=== PATIENT | female | born 1985 | race Caucasian/White ===

== ENCOUNTER 2020-03-18 14:17 | Inpatient (IN) | payer MEDICAID, SELFPAY ==
[2020-03-18] VITALS (16 sets, daily range): BP systolic 114–134; BP diastolic 63–80; PULSE 68–95; RESP 14–23; TEMP 36.7–37.5; O2SAT 98–100; BMI 30.8
--- NOTE | ~2020-03-18 | US_ITS ---
EXAMINATION: US pelvic complete w TV DATE: 03/18/2020 18:16 INDICATION: Vaginal bleeding, anemia TECHNIQUE: Multiple transabdominal and endovaginal sonographic images of the pelvis were obtained. COMPARISON: CT from today FINDINGS: The uterus measures 13.7 x 10.6 x 11.8 cm. The endometrial complex is difficult to discern. There is an apparent 9.4 x 7.5 cm heterogeneous mass in the endometrial canal. The ovaries are not v isualized however no adnexal abnormality is seen. There is no free fluid in the pelvis. IMPRESSION: 1. Enlarged uterus with heterogeneous mass of the endometrial canal. Given patient's severe anemia, G YN evaluation is recommended. Reviewed, dictated and finalized at location A. IMPRESSION: 1. Enlarged uterus with heterogeneous mass of the endometrial canal. Given anton ent's severe anemia, SEISMOGRAPH RECORDER evaluation is recommended.
--- NOTE | ~2020-03-18 | CT_ITS ---
EXAMINATION: CT abdomen pelvis w con INDICATION: Vaginal bleeding TECHNIQUE: Computed tomographic images of the abdomen and pelvis were obtained after the administrati on of 100 cc of Omnipaque 350 intravenous contrast. The dose-length product (DLP) was 540.53 mGy-cm. Automated exposure control and iterative reconstruction technique were employed. COMPARISON: None available FINDINGS: Minimal dependent atelectasis is present in the lung bases. The heart size is normal. The l iver, spleen, pancreas, gallbladder, and adrenal glands are normal. The kidneys are unremarkable. No pathologically enlarged abdominal or pelvic lymph nodes are identified. There is no free intraperiton eal gas or evidence of bowel obstruction. The appendix is normal. There is enlargement of the uterus with apparent marked distention of the endometrial canal measuring up to 10 cm. There is heterogeneou s hyperattenuation in what appears to be endometrial canal. IMPRESSION: 1. Enlarged uterus with heterogeneous masslike enlargement likely of the endometrial canal. Findings could reflect endometrial mass and/or hemorrhage. Pelvic ultrasound and SENIOR VISUAL DESIGNER consultation are recommen ded. Reviewed, dictated and finalized at location A. IMPRESSION: 1. Enlarged uterus with heterogeneous masslike enlargement likely of the endome trial canal. Findings could reflect endometrial mass and/or hemorrhage. Pelvic ultrasound and SENIOR VISUAL DESIGNER consultation are recommended.
--- NOTE | 2020-03-18 15:06 | ED.GENADULT ---
HPI - General Adult General Chief complaint: Vaginal Bleeding Stated complaint: excessive menses Time Seen by Provider: 03/18/20 14:57 Source: patient Mode of arrival: ambulatory Limitations: no limitations History of Present Illness HPI narrative: 34-year-old female patient presents to the [facility] with complaints of excessive vaginal bleeding for the past 2 weeks. Patient states that she came in today because she noticed that the bleeding was abnormally heavy and states that there was clots in the bleeding and that she was going through tampons and pads within minutes to 1/2-hour. Patient states she has had some lower abdominal cramping. Patient states she has been a little lightheaded and dizzy when she stands. Denies any vomiting. Patient states she did have some episodes of diarrhea today as well as some nausea. Patient denies being on any type of control or hormones at this time. Patient denies having any children. Patient denies . Patient states she has in a monogamous relationship with her and has no concerns for STDs. 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 Related Data Home Medications Medication Instructions Recorded Confirmed No Home Medications 03/18/20 03/18/20 Allergies Allergy/AdvReac Type Severity Reaction Status Date / Time No Known Allergies Allergy Verified 03/18/20 18:28 Review of Systems Review of Systems: Narrative: CONSTITUTIONAL: Denies fever, chills, or sweats. EYES: Denies visual changes, redness, or discharge. ENT: Denies rhinorrhea, congestion, sore throat, or otalgia. CARDIOVASCULAR: Denies chest pain, palpitations, or edema. RESPIRATORY: Denies cough or dyspnea. GASTROINTESTINAL: Positive lower abdominal pain, nausea, denies vomiting, positive diarrhea. Positive vaginal bleeding x2 weeks GENITOURINARY: Denies dysuria or hematuria. SKIN: Denies rash or itching. MUSCULOSKELETAL: Denies back pain, joint pain, or myalgia. NEUROLOGIC: Denies headache, numbness, or weakness. PSYCHIATRIC: Denies anxiety or depression. PMFSH Comments At the time of my signature I agree with nursing past medical history, surgical, social, and family history. There is no relevant family history pertinent to the presenting complaint. Exam Narrative: Exam Narrative: GENERAL: Well-appearing, well-nourished, and in no acute distress. HEAD: Normocephalic, atraumatic. EYES: PERRLA and EOMI. ENT: Nares clear, no rhinorrhea or epistaxis. Mucous membranes moist. NECK: Supple. No lymphadenopathy CHEST: Clear to auscultation. No respiratory distress. HEART: Regular rate and rhythm. No murmur heard. Normal peripheral pulses. ABDOMEN: Soft, flat, nondistended. No guarding, rebound tenderness, or rigid. Tenderness noted to left lower quadrant and right lower quadrant on palpation. No pulsatilla masses. Bowel sounds present in all four quadrants. No organomegaly. Negative Monroe?s sign. No periumbicial tenderness. No Supra public tenderness or distension. Good femoral pulses bilaterally. No hernia noted. No scars or surface trauma. :exam at 1840: Normal external female genitalia. OS is closed. When patient aspirin Lopressor Aust does appear pale. There is a small amount of bleeding coming from the opening of the office. Not a lot of blood noted on exam at this time. Patient continues to complain of cramping. No CVA tenderness to percussion. EXTREMITIES: Normal range of motion. No edema. SKIN: Warm, dry, no rash. NEURO: No focal deficits. Alert and oriented x3. Course Reevaluation(s) Reevaluation #1: Reevaluated patient. Discussed with her that her CBC came back with a hemoglobin of 3. Discussed with her that this is concerning the most likely we will need to give her a blood transfusion. Discussed with her that most likely we will also bring her into the hospital for admission. A call was placed to Dr. Owens and report was given to her about patient
[2020-03-18 15:40] LABS: INR 1.1; Prothrombin Time 14.1 Seconds (11.1-14.7)
[2020-03-18 15:41] LABS: Partial Thromboplastin Time 26.4 SECONDS (22.3-36.8)
[2020-03-18] MEDS: SODIUM CHLORIDE 0.9% IV 1,000 ML 999 ML IV CONT (16:26)
[2020-03-18 17:12] LABS: Basophils Percent Auto 0.5 % (0.2-1.2); Eosinophils Percent Auto 0.3 % (0-4.4); Immature Granulocyte Absolute 0.01 K/mm3 (0.00-0.031); Immature Granulocyte Percent A 0.3 % (0-0.5); Lymphocytes Absolute Auto 1.16 K/mm3 (0.9-3.2); Mean Corpuscular Hemoglobin 12.8 pg (26-34); Mean Corpuscular Volume 55.8 fl (80-100); Monocytes Absolute Auto 0.2 K/mm3 (0.1-0.6); Neutrophils Absolute Auto 2.6 K/mm3 (1.3-6.7); Neutrophils Percent Auto 64.9 % (45.5-73.1); Platelet Count Result 361 k/mm3 (150-375); Red Blood Count 2.42 M/mm3 (4.2-5.4)
[2020-03-18 17:24] LABS: Hematocrit 13.5 % (37.0-47.0); Hemoglobin 3.1 g/dL (12.0-15.0)
[2020-03-18 17:34] LABS: Platelet Estimate Adequate (Adequate)
[2020-03-18 17:35] LABS: Anisocytosis 3+ (NORMAL); Hypochromasia 3+ (NORMAL)
[2020-03-18 17:37] LABS: Add Urine Microscopic? YES; Appearance Urine Clear (Clear); Bilirubin Urine Negative (Negative); Blood Urine 1+ (Negative); Color Urine Yellow (Yellow); Glucose Urine UA Negative (Negative); Ketones Urine Trace mg/dL (Negative); Leukocyte Esterase Ur Negative LEU/UL (Negative); Mucus Urine Few /lpf; Nitrate Urine Negative (Negative); Protein Urine Negative (Negative); RBC Urine 0-2 /hpf (0-2); Specific Grav Ur 1.012 (1.001-1.035); Squamous Epithelial Cell Urine Occasional /hpf (Few); Urobilinogen Urine Negative mg/dL (<2.0); WBC Urine 0-3 /hpf
[2020-03-18 17:37] LABS: Alanine Aminotransferase 10 U/L (4-35); Albumin Level 4.3 g/dL (3.5-5.1); Alkaline Phosphatase 61 U/L (38-126); Aspartate Amino Transferase 16 U/L (14-36); Bilirubin,Total 0.4 mg/dL (0.2-1.3); Blood Urea Nitrogen 9 mg/dL (7-17); Calcium 9.1 mg/dL (8.4-10.2); Carbon Dioxide 21 mmol/L (22-30); Chloride 104 mmol/L (98-107); Estimated CRCL calculation 118 ml/min; Estimated Glomerular Filt Rate > 60; Glucose 87 mg/dL (65-105); Potassium 3.7 mmol/L (3.4-5.0); Sodium 135 mmol/L (137-145)
--- NOTE | 2020-03-18 18:27 | PC.NURSE ---
Care assumed at this time, report was given by INDIA Acosta
[2020-03-18] MEDS: TRANEXAMIC ACID 1,000 MG/10 ML AMPUL 1000 MG IV PUSH (19:00)
--- NOTE | 2020-03-18 21:39 | ADMGEN ---
This patient, Aleyda Baer, was admitted to 3 [facility] Surg Room 315-01. Patient/family oriented to hospital policies and general routines including ID bracelet, bed and alarms, visiting hours, pain management, procedures, bathroom and other care routines, personal items, smoking policy, room service/diet, and visiting hours. Valuables list has been completed. Information on how to activate the Rapid Response Team has been discussed. Patient/Family are encouraged to report perceived risks to care and to ask questions if they do not understand what they are told or what they should do.
[2020-03-18] MEDS: SODIUM CHLORIDE 0.9% IV 1,000 ML 125 ML IV CONT (21:45)
[2020-03-18 22:45] LABS: Basophils Absolute Auto 0.1 K/mm3 (0.0-0.1); Basophils Percent Auto 1.2 % (0.2-1.2); Eosinophils Percent Auto 0.4 % (0-4.4); Hematocrit 22.3 % (37.0-47.0); Immature Granulocyte Absolute 0.01 K/mm3 (0.00-0.031); Immature Granulocyte Percent A 0.2 % (0-0.5); Immature Platelet Fraction Pct 3.6 % (0.9-11.2); Lymphocytes Absolute Auto 1.65 K/mm3 (0.9-3.2); Lymphocytes Percent Auto 33.9 % (18.3-44.2); Mean Corpuscular HGB Conc 27.4 g/dl (32-36); Mean Corpuscular Hemoglobin 17.9 pg (26-34); Mean Corpuscular Volume 65.4 fl (80-100); Monocytes Absolute Auto 0.3 K/mm3 (0.1-0.6); Monocytes Percent Auto 5.3 % (2.6-8.5); Neutrophils Absolute Auto 2.9 K/mm3 (1.3-6.7); Nucleated Red Blood Cells Perc 0.6 % (0.0-0.2); Platelet Count Result 343 k/mm3 (150-375); Red Blood Count 3.41 M/mm3 (4.2-5.4); Red Cell Distribution Width 30.1 % (11.5-14.5); White Blood Count 4.9 K/mm3 (4.5-10.0)
[2020-03-18 23:10] LABS: Hemoglobin 6.1 g/dL (12.0-15.0)
[2020-03-18 23:11] LABS: Hypochromasia 3+ (NORMAL); Ovalocytes 1+ (NORMAL); Platelet Estimate Adequate (Adequate)
[2020-03-18 23:12] LABS: Large Platelets Present; Microcytosis 1+ (NORMAL)
[2020-03-19] VITALS (10 sets, daily range): BP systolic 117–134; BP diastolic 56–77; PULSE 16–72; RESP 16–100; TEMP 36.5–36.9; O2SAT 63–100
[2020-03-19 06:43] LABS: Basophils Absolute Auto 0.1 K/mm3 (0.0-0.1); Basophils Percent Auto 1.3 % (0.2-1.2); Hemoglobin 7.9 g/dL (12.0-15.0); Immature Granulocyte Absolute 0.02 K/mm3 (0.00-0.031); Immature Granulocyte Percent A 0.5 % (0-0.5); Immature Platelet Fraction Pct 3.5 % (0.9-11.2); Lymphocytes Percent Auto 31.1 % (18.3-44.2); Mean Corpuscular HGB Conc 29.3 g/dl (32-36); Mean Corpuscular Hemoglobin 20.3 pg (26-34); Mean Corpuscular Volume 69.2 fl (80-100); Mean Platelet Volume 9.7 fl (7.4-10.4); Monocytes Absolute Auto 0.3 K/mm3 (0.1-0.6); Monocytes Percent Auto 6.7 % (2.6-8.5); Neutrophils Absolute Auto 2.3 K/mm3 (1.3-6.7); Neutrophils Percent Auto 59.4 % (45.5-73.1); Platelet Count Result 265 k/mm3 (150-375); Red Cell Distribution Width 28.8 % (11.5-14.5); White Blood Count 3.9 K/mm3 (4.5-10.0)
[2020-03-19 07:25] LABS: Platelet Estimate Adequate (Adequate)
[2020-03-19 07:26] LABS: Hypochromasia 2+ (NORMAL); Ovalocytes 1+ (NORMAL); Polychromasia 1+ (NORMAL)
--- NOTE | 2020-03-19 09:11 | PM.IMHP ---
H&P: HPI History of Present Illness Chief complaint: vaginal bleeding Narrative: Aleyda Baer is a 34 year old female G0, LMP March 04. Presented to ED on 03/18 after having a large flowing gush of blood while at work. She states that her periods have always been heavy and have increased in flow over the past six months. Her periods usually last 7-10 days. She has clots. Hemoglobin in ED 3. She had CT in ED showed enlarged uterus. Pelvic ultrasound showed large endometrial lesion. She has moderate to severe dysmenorrhea. She uses pull out and rhythm for control. Has no desire for at this time. 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 No history of any director presales issues when last seen sales project administrator. She has been tired and winded for several months which she assumed was due to wearing a mask. Has some urinary hesitancy mild over past few months. Denies dysparenia. She denies history of abnormal pap smear. Denies abnormal vaginal discharge. She is not aware of any family history of fibroids or any other director presales issues. Her mother had breast cancer at 43. She states they were told was not hereditary. Review of Systems Review of Systems: All systems reviewed & are unremarkable except as noted in HPI and below Constitutional: Constitutional: Reports fatigue Eyes: Eyes: Reports no additional eye complaints ENT: Reports Normal hearing present Cardiovascular: Cardiovascular: Denies chest pain and Reports dyspnea Respiratory: Respiratory: Reports dyspnea on exertion Gastrointestinal: Gastrointestinal: Denies abdominal pain Genitourinary: Genitourinary: Reports no additional female genitourinary complaints, Reports as per HPI, Denies dyspareunia, Denies vaginal discharge, Denies vaginal dryness, Denies vaginal odor and Denies vaginal pruritus Psychiatric: Psychiatric: Reports no additional psychiatric complaints Endocrine: Endocrine: Reports no additional endocrine complaints Hematologic/Lymphatic: Hematologic/Lymphatic: Reports no additional hematologic/lymphatic complaints [facility] Family History Family History Mother Breast cancer Social History Social History Smoking status: Former smoker Tobacco type: cigarettes Alcohol intake: current Drinks per week: 1 Substance use: current Substance use type: marijuana Last use: 03/18/20 Spiritual care concerns: No Meds Home Medications and Allergies Home Medications Medication Instructions Recorded Confirmed Type No Home Medications 03/18/20 03/18/20 History Allergies Allergy/AdvReac Type Severity Reaction Status Date / Time No Known Allergies Allergy Verified 03/18/20 18:28 Vital Signs Vital Signs - 24 hr 03/18/20 14:39 03/18/20 17:39 03/18/20 18:22 Temperature 98.8 F 99.5 F 98.5 F Pulse Rate 95 78 84 Respiratory Rate 20 18 Blood Pressure 134/74 133/74 122/75 Pulse Oximetry 100 100 99 03/18/20 18:27 03/18/20 18:38 03/18/20 18:39 Temperature 98.4 F 98.4 F Pulse Rate 83 86 87 Respiratory Rate 17 14 16 Blood Pressure 130/76 126/80 126/80 Pulse Oximetry 98 100 99 03/18/20 18:58 03/18/20 19:00 03/18/20 19:09 Temperature 98.1 F Pulse Rate 78 76 73 Respiratory Rate 21 H 20 20 Blood Pressure 132/73 130/73 114/63 Pulse Oximetry 100 100 99 03/18/20 19:26 03/18/20 19:27 03/18/20 19:41 Temperature 98.8 F 98.5 F Pulse Rate 77 70 74 Respiratory Rate 20 17 16 Blood Pressure 121/73 121/73 134/69 Pulse Oximetry 99 99 99 03/18/20 19:42 03/18/20 20:42 03/18/20 21:18 Temperature 98.9 F 98.8 F Pulse Rate 77 77 68 Respiratory Rate 14 23 H 17 Blood Pressure 126/65 120/66 126/75 Pulse Oximetry 100 99 98 03/18/20 21:25 03/19/20 00:05 03/19/20 00:20 Temperature 98.2 F 98.0 F 98.1 F Pulse Rate 73 59 L 66 Respiratory Rate 16 16 18 Blood Pressure 132/67 125/68 131/77 Pulse Oximetry 100 100 100
[2020-03-19 09:30] LABS: Basophils Percent Auto 0.8 % (0.2-1.2); Eosinophils Absolute Auto 0.1 K/mm3 (0-0.3); Eosinophils Percent Auto 1.2 % (0-4.4); Hemoglobin 8.3 g/dL (12.0-15.0); Immature Granulocyte Absolute 0.04 K/mm3 (0.00-0.031); Immature Granulocyte Percent A 0.8 % (0-0.5); Immature Platelet Fraction Pct 3.5 % (0.9-11.2); Lymphocytes Absolute Auto 1.51 K/mm3 (0.9-3.2); Lymphocytes Percent Auto 29.5 % (18.3-44.2); Mean Corpuscular HGB Conc 29.6 g/dl (32-36); Mean Corpuscular Hemoglobin 20.3 pg (26-34); Mean Corpuscular Volume 68.5 fl (80-100); Monocytes Absolute Auto 0.3 K/mm3 (0.1-0.6); Monocytes Percent Auto 6.5 % (2.6-8.5); Neutrophils Absolute Auto 3.1 K/mm3 (1.3-6.7); Neutrophils Percent Auto 61.2 % (45.5-73.1); Nucleated Red Blood Cells Absolute Auto 0.1 K/mm3 (0.0-0.012); Platelet Count Result 299 k/mm3 (150-375); Red Blood Count 4.09 M/mm3 (4.2-5.4); White Blood Count 5.1 K/mm3 (4.5-10.0)
--- NOTE | 2020-03-19 10:44 | PM.OBPNVD ---
OB - PN: Subj Subjective Date/time seen: 03/19/20 10:44 She states she feels much better than on admission. Has ambulated to restroom. No dizziness. Cramping improved. Her bleeding is signficantly improved from yesterday. OB - PN: Obj Data Labs CBC & Chem 7: 03/19/20 09:12 03/18/20 17:16 Labs: Laboratory Results - last 24 hr 03/18/20 03/18/20 03/18/20 14:57 15:26 15:26 WBC 4.0 L RBC 2.42 L Hgb 3.1 L* Hct 13.5 L* MCV 55.8 L MCH 12.8 L MCHC 23.0 L RDW 23.0 H Plt Count 361 MPV TNP Immature Gran % (Auto) 0.3 Neut % (Auto) 64.9 Lymph % (Auto) 29.0 [place] % (Auto) 5.0 Eos % (Auto) 0.3 Baso % (Auto) 0.5 Lymph # (Auto) 1.16 [place] # (Auto) 0.2 Eos # (Auto) 0.0 Baso # (Auto) 0.0 Abs Immat Gran (auto) 0.01 Absolute Neuts (auto) 2.6 Absolute Nucleated RBC 0.0 Nucleated RBC % 0.0 Platelet Estimate Adequate Large Platelets % Immature Plt Fraction Polychromasia Hypochromasia 3+ Anisocytosis 3+ Microcytosis Ovalocytes PT 14.1 INR 1.1 APTT 26.4 Sodium Potassium Chloride Carbon Dioxide BUN Creatinine Estim Creat Clear Calc Estimated GFR Glucose Calcium Total Bilirubin AST ALT Alkaline Phosphatase Total Protein Albumin Urine Color Urine Appearance Urine pH Ur Specific [place] Urine Protein Urine Glucose (UA) Urine Ketones Ur Blood (Man) Urine Nitrate Urine Bilirubin Urine Urobilinogen Leukocyte Esterase Rfl Urine RBC Urine WBC Ur Squamous Epith Cells Hyaline Casts Urine Mucus Blood Type B Positive Antibody Screen Negative Crossmatch See Detail 03/18/20 03/18/20 03/18/20 17:16 17:23 22:17 WBC 4.9 RBC 3.41 L Hgb 6.1 L* D Hct 22.3 L MCV 65.4 L D MCH 17.9 L D MCHC 27.4 L RDW 30.1 H Plt Count 343 MPV TNP Immature Gran % (Auto) 0.2 Neut % (Auto) 59.0 Lymph % (Auto) 33.9 [place] % (Auto) 5.3 Eos % (Auto) 0.4 Baso % (Auto) 1.2 Lymph # (Auto) 1.65 [place] # (Auto) 0.3 Eos # (Auto) 0.0 Baso # (Auto) 0.1 Abs Immat Gran (auto) 0.01 Absolute Neuts (auto) 2.9 Absolute Nucleated RBC 0.0 Nucleated RBC % 0.6 H Platelet Estimate Adequate Large Platelets Present % Immature Plt Fraction 3.6 Polychromasia Hypochromasia 3+ Anisocytosis Microcytosis 1+ Ovalocytes 1+ PT INR APTT Sodium 135 L Potassium 3.7 Chloride 104 Carbon Dioxide 21 L BUN 9 Creatinine 0.60 L Estim Creat Clear Calc 118 Estimated GFR > 60 Glucose 87 Calcium 9.1 Total Bilirubin 0.4 AST 16 ALT 10 Alkaline Phosphatase 61 Total Protein 7.0 Albumin 4.3 Urine Color Yellow Urine Appearance Clear Urine pH 6.0 Ur Specific [place] 1.012 Urine Protein Negative Urine Glucose (UA) Negative Urine Ketones Trace Ur Blood (Man) 1+ H Urine Nitrate Negative Urine Bilirubin Negative Urine Urobilinogen Negative Leukocyte Esterase Rfl Negative Urine RBC 0-2 Urine WBC 0-3 Ur Squamous Epith Cells Occasional Hyaline Casts 3-4 H Urine Mucus Few H Blood Type Antibody Screen Crossmatch 03/19/20 03/19/20 06:13 09:12 WBC 3.9 L 5.1 RBC 3.90 L 4.09 L Hgb 7.9 L 8.3 L Hct 27.0 L 28.0 L MCV 69.2 L D 68.5 L MCH 20.3 L D 20.3 L MCHC 29.3 L 29.6 L RDW 28.8 H TNP Plt Count 265 299 MPV 9.7 TNP Immature Gran % (Auto) 0.5 0.8 H Neut % (Auto) 59.4 61.2 Lymph % (Auto) 31.1 29.5 [place] % (Auto) 6.7 6.5 Eos % (Auto) 1.0 1.2 Baso % (Auto) 1.3 H 0.8 Lymph # (Auto) 1.20 1.51 [place] # (Auto) 0.3 0.3 Eos # (Auto) 0.0 0.1 Baso # (Auto) 0.1 0.0 Abs Immat Gran (auto) 0.02 0.04 H Absolute Neuts (auto) 2.3 3.1 Absolute Nucleated RBC 0.0 0.1 H Nucleated RBC % 1.0 H 1.0 H Anuj
--- NOTE | 2020-03-19 10:58 | PM.OBDSVD ---
DS: Admitting Diagnosis Admitting Diagnosis Admitting Diagnosis: Abnormal uterine and vaginal bleeding, unspecified DS: Discharge Diagnosis Discharge Diagnosis (1) Abnormal uterine bleeding: Code(s): N93.9 - Abnormal uterine and vaginal bleeding, unspecified Status: Acute (2) Severe anemia: Code(s): D64.9 - Anemia, unspecified Status: Acute (3) Abnormal finding on ultrasound: Code(s): R93.89 - Abnormal findings on diagnostic imaging of other specified body structures Status: Acute OB - DS: Summary OB Procedures : None OB Procedures Intrapartum: Other OB Procedures: : None Time Spent with Patient Time attestation: Total time spent providing and/or coordinating discharge services: DS: Data Data Completed and Pending Pending studies at discharge: Pending at discharge 03/19/20 10:11 Surgical [PTH] Routine Labs on day of discharge: Labs from last 24 hours 03/19/20 03/19/20 03/18/20 09:12 06:13 22:17 WBC 5.1 3.9 L 4.9 RBC 4.09 L 3.90 L 3.41 L Hgb 8.3 L 7.9 L 6.1 L* D Hct 28.0 L 27.0 L 22.3 L MCV 68.5 L 69.2 L D 65.4 L D MCH 20.3 L 20.3 L D 17.9 L D MCHC 29.6 L 29.3 L 27.4 L RDW TNP 28.8 H 30.1 H Plt Count 299 265 343 MPV TNP 9.7 TNP Immature Gran % (Auto) 0.8 H 0.5 0.2 Neut % (Auto) 61.2 59.4 59.0 Lymph % (Auto) 29.5 31.1 33.9 [place] % (Auto) 6.5 6.7 5.3 Eos % (Auto) 1.2 1.0 0.4 Baso % (Auto) 0.8 1.3 H 1.2 Lymph # (Auto) 1.51 1.20 1.65 [place] # (Auto) 0.3 0.3 0.3 Eos # (Auto) 0.1 0.0 0.0 Baso # (Auto) 0.0 0.1 0.1 Abs Immat Gran (auto) 0.04 H 0.02 0.01 Absolute Neuts (auto) 3.1 2.3 2.9 Absolute Nucleated RBC 0.1 H 0.0 0.0 Nucleated RBC % 1.0 H 1.0 H 0.6 H Platelet Estimate Adequate Adequate Large Platelets Present % Immature Plt Fraction 3.5 3.5 3.6 Polychromasia 1+ Hypochromasia 2+ 3+ Anisocytosis Microcytosis 1+ Ovalocytes 1+ 1+ PT INR APTT Sodium Potassium Chloride Carbon Dioxide BUN Creatinine Estim Creat Clear Calc Estimated GFR Glucose Calcium Total Bilirubin AST ALT Alkaline Phosphatase Total Protein Albumin Urine Color Urine Appearance Urine pH Ur Specific [place] Urine Protein Urine Glucose (UA) Urine Ketones Ur Blood (Man) Urine Nitrate Urine Bilirubin Urine Urobilinogen Leukocyte Esterase Rfl Urine RBC Urine WBC Ur Squamous Epith Cells Hyaline Casts Urine Mucus Blood Type Antibody Screen Crossmatch 03/18/20 03/18/20 03/18/20 17:23 17:16 15:26 WBC 4.0 L RBC 2.42 L Hgb 3.1 L* Hct 13.5 L* MCV 55.8 L MCH 12.8 L MCHC 23.0 L RDW 23.0 H Plt Count 361 MPV TNP Immature Gran % (Auto) 0.3 Neut % (Auto) 64.9 Lymph % (Auto) 29.0 [place] % (Auto) 5.0 Eos % (Auto) 0.3 Baso % (Auto) 0.5 Lymph # (Auto) 1.16 [place] # (Auto) 0.2 Eos # (Auto) 0.0 Baso # (Auto) 0.0 Abs Immat Gran (auto) 0.01 Absolute Neuts (auto) 2.6 Absolute Nucleated RBC 0.0 Nucleated RBC % 0.0 Platelet Estimate Adequate Large Platelets % Immature Plt Fraction Polychromasia Hypochromasia 3+ Anisocytosis 3+ Microcytosis Ovalocytes PT INR APTT Sodium 135 L Potassium 3.7 Chloride 104 Carbon Dioxide 21 L BUN 9 Creatinine 0.60 L Estim Creat Clear Calc 118 Estimated GFR > 60 Glucose 87 Calcium 9.1 Total Bilirubin 0.4 AST 16 ALT 10 Alkaline Phosphatase 61 Total Protein 7.0 Albumin 4.3 Urine Color Yellow Urine Appearance Clear Urine pH 6.0 Ur Specific [place] 1.012 Urine Protein Negative Urine Glucose (UA) Negative Urine Ketones Trace Ur Blood (Man) 1+ H Urine Nitrate Negative Urine Bilirubin Negative Urine Urobilinogen Negative Leukocyte Esterase
[2020-03-19 11:14] LABS: Immature Reticulocyte Fraction 2.9 % (3.0-15.9); Reticulocyte Hemoglobin Conten 16.8 pg (28.2-35.7); Reticulocyte Percent 1.89 % (0.7-4.3); Reticulocytes Absolute 0.07 B/L (32.2-175.7)
[2020-03-19 12:20] LABS: Iron 31 ug/dL (37-170)
[2020-03-19 12:32] LABS: Percent Iron Saturation 8 % (20-50)
== END 2020-03-19 15:30 | disposition home or self-care (01) | DRG 517 ==
LOC: ANHED 19:30 → ANH3MEDSUR 20:21
PROVIDERS: Emergency Medicine; Admitting Provider Obstetrics & Gynecology; Emergency Provider Nurse Practitioner Family; Visit Provider Obstetrics & Gynecology
DX: N93.9 Abnormal uterine and vaginal bleeding, unspecified (principal); R93.89 Abnormal findings on diagnostic imaging of other specified body structures; D64.9 Anemia, unspecified; Z87.891 Personal history of nicotine dependence
CPT/HCPCS: 36415; 36430; 74177; 76830; 76856; 80053; 81001; 81025; 83540; 83550; 85025; 85046; 85055; 85610; 85730; 86850; 86900; 86901; 86923; 88142; 88305; 96361; 96374; 99285; A9270; J0690; J7030; J7050; P9016; Q9967

== ENCOUNTER 2020-04-08 12:51 | Emergency (ER) | payer MEDICAID, SELFPAY ==
--- NOTE | 2020-04-08 12:59 | ED.ABDPAIN ---
HPI - Abdominal Pain General Chief Complaint: Abdominal Pain Stated Complaint: Side pain & fever Source: patient and RN notes reviewed Mode of arrival: ambulatory Limitations: no limitations Related Data Home Medications Medication Instructions Recorded Confirmed norethindrone acetate 5 mg tablet 5 mg PO DAILY 04/05/20 Allergies Allergy/AdvReac Type Severity Reaction Status Date / Time No Known Allergies Allergy Verified 04/05/20 14:15 Review of Systems Review of Systems: All systems reviewed & are unremarkable except as noted in HPI and below PMFSH Social History Social History Smoking status: Former smoker Tobacco type: cigarettes Alcohol intake: current Drinks per week: 1 Substance use: current Substance use type: marijuana Spiritual care concerns: No Comments At time of signature, agree with nursing past medical, surgical, social and family history. There is no relevant family history pertinent to the presenting complaint Course Course Emergency Course: Patient is aware of diagnosis, understands and agrees to treatment plan. Anticipatory guidance given. Patient agrees to follow-up as directed and is aware of reasons to seek care at the emergency department. Portions of this record may have been created with voice recognition software Vital Signs Vital signs: Reviewed. Critical Care Time Critical Care Time Critical Care Time: No Discharge Plan Discharge Prescriptions: No Action norethindrone acetate 5 mg tablet 5 mg PO DAILY RF: 0 Ferralet 90 Dual-Iron Delivery 90-1-12-50 [id number] tablet 1 tablet PO ONCE Qty: 30 RF: 1
== END 2020-04-08 13:00 | disposition left against medical advice (07) ==
LOC: EXPBETH 12:54
PROVIDERS: Emergency Provider Nurse Practitioner
DX: Z53.21 Procedure and treatment not carried out due to patient leaving prior to being seen by health care provider (principal)
CPT/HCPCS: 99199

== ENCOUNTER 2020-04-08 13:34 | Emergency (ER) | payer MEDICAID, SELFPAY ==
[2020-04-08 13:43] VITALS: BP 121/68; PULSE 102; RESP 20; TEMP 36.3; O2SAT 100
[2020-04-08 14:11] LABS: Basophils Absolute Auto 0.1 K/mm3 (0.0-0.1); Basophils Percent Auto 0.6 % (0.2-1.2); Eosinophils Percent Auto 0.1 % (0-4.4); Hematocrit 39.1 % (37.0-47.0); Hemoglobin 11.9 g/dL (12.0-15.0); Immature Granulocyte Absolute 0.03 K/mm3 (0.00-0.031); Immature Granulocyte Percent A 0.3 % (0-0.5); Immature Platelet Fraction Pct 1.8 % (0.9-11.2); Lymphocytes Absolute Auto 0.75 K/mm3 (0.9-3.2); Lymphocytes Percent Auto 6.6 % (18.3-44.2); Mean Corpuscular HGB Conc 30.4 g/dl (32-36); Mean Corpuscular Hemoglobin 23.2 pg (26-34); Mean Corpuscular Volume 76.4 fl (80-100); Monocytes Percent Auto 8.5 % (2.6-8.5); Neutrophils Absolute Auto 9.6 K/mm3 (1.3-6.7); Neutrophils Percent Auto 83.9 % (45.5-73.1); Platelet Count Result 442 k/mm3 (150-375); Red Blood Count 5.12 M/mm3 (4.2-5.4); Red Cell Distribution Width 30.7 % (11.5-14.5); White Blood Count 11.4 K/mm3 (4.5-10.0)
[2020-04-08 14:13] LABS: Alanine Aminotransferase 31 U/L (4-35); Albumin Level 4.8 g/dL (3.5-5.1); Alkaline Phosphatase 65 U/L (38-126); Aspartate Amino Transferase 36 U/L (14-36); Bilirubin,Total 0.7 mg/dL (0.2-1.3); Blood Urea Nitrogen 3 mg/dL (7-17); Calcium 9.6 mg/dL (8.4-10.2); Carbon Dioxide 21 mmol/L (22-30); Chloride 103 mmol/L (98-107); Estimated CRCL calculation 116 ml/min; Estimated Glomerular Filt Rate > 60; Glucose 115 mg/dL (65-105); Lipase 33 U/L (23-300); Sodium 135 mmol/L (137-145)
[2020-04-08 14:13] LABS: Add Urine Microscopic? YES; Appearance Urine Cloudy (Clear); Bacteria Urine Trace /hpf; Bilirubin Urine Negative (Negative); Blood Urine 1+ (Negative); Color Urine Yellow (Yellow); Glucose Urine UA Negative (Negative); Ketones Urine Negative (Negative); Leukocyte Esterase Ur 3+ LEU/UL (Negative); Mucus Urine Few /lpf; Nitrate Urine Negative (Negative); Protein Urine 1+ mg/dL (Negative); RBC Urine 21-50 /hpf (0-2); Specific Grav Ur 1.012 (1.001-1.035); Squamous Epithelial Cell Urine Many /hpf (Few); Urobilinogen Urine Negative mg/dL (<2.0); WBC Urine >75 /hpf
[2020-04-08 14:25] LABS: Anisocytosis 1+ (NORMAL); Hypochromasia 1+ (NORMAL); Ovalocytes 1+ (NORMAL); Platelet Estimate Adequate (Adequate); Poikilocytosis 1+ (NORMAL); Stomatocytes 1+ (NORMAL)
--- NOTE | 2020-04-08 14:30 | ED.ABDPAIN ---
HPI - Abdominal Pain General Chief Complaint: Abdominal Pain Stated Complaint: fever, abd pain Time Seen by Provider: 04/08/20 13:55 History of Present Illness HPI narrative: RLQ pain since yesterday. Worsening in severity. No radiation. She reports fever at home. Afebrile here, did take tylenol prior to arrival. She was hospitalized on 03/18 for anemia due to a large uterine fibroid. She says that she has not been feeling well since that time. Related Data Home Medications Medication Instructions Recorded Confirmed norethindrone acetate 5 mg tablet 5 mg PO DAILY 04/05/20 Allergies Allergy/AdvReac Type Severity Reaction Status Date / Time No Known Allergies Allergy Verified 04/08/20 13:47 Review of Systems Review of Systems: All systems reviewed & are unremarkable except as noted in HPI and below Constitutional: Constitutional: Reports fever(s) ENT: Denies sore throat Cardiovascular: Cardiovascular: Denies chest pain Respiratory: Respiratory: Denies dyspnea Gastrointestinal: Gastrointestinal: Reports abdominal pain and Reports nausea Genitourinary: Genitourinary: Reports abnormal vaginal bleeding and Denies vaginal discharge Neurologic: Denies weakness PMFSH Past Medical History Medical History (Updated 04/12/20 @ 13:45 by John Zimmerman MD) Dysfunctional uterine bleeding Severe anemia Surgical History Surgical History Ray teeth removed Family History Family History Mother Breast cancer Hypertension Social History Social History Smoking status: Former smoker Tobacco type: cigarettes Alcohol intake: current Drinks per week: 1 Substance use: current Substance use type: marijuana Spiritual care concerns: No Exam Const: General: healthy appearing, no acute distress and alert Orientation/consciousness: patient oriented x3 HENMT: Head: normal to inspection Neck: Neck: normal visual inspection and no lymphadenopathy Chest: Chest palpation & inspection: no tenderness Resp: Effort & Inspection: normal respiratory effort Auscultation: clear to auscultation bilaterally, no rales, no rhonchi and no wheezes Cardio: Jugular venous distension: no JVD Rate: regular rate Rhythm: regular rhythm Heart sounds: no murmurs GI: Inspection: non-distended GI Palp: Yes Soft to palpation and No Tenderness to palpation present (GI) Skin: General skin exam: normal color Neuro: General: patient oriented x3 and moves all extremities Speech: normal speech Extrem: General: no edema Psych: Appearance: well kempt Affect: normal affect Course Vital Signs Vital signs: Vital Signs Temperature 36.3 C L 04/08/20 13:43 Pulse Rate 102 H 04/08/20 13:43 Respiratory Rate 04/08/20 13:43 Blood Pressure 121/68 04/08/20 13:43 Pulse Oximetry 100 04/08/20 13:43 Temperature 36.3 C L 04/08/20 13:43 Pulse Rate 102 H 04/08/20 13:43 Respiratory Rate 04/08/20 13:43 Blood Pressure 121/68 04/08/20 13:43 Pulse Oximetry 100 04/08/20 13:43 MDM - Abdominal Pain MDM Narrative Medical decision making narrative: H/H reassuring. UA consitent with UTI. Case discussed with Dr. Wiley. She does not feel that any emergent imaging is warranted at this time. Differential Diagnosis Differential diagnosis: Likely acute appendicitis Medical Records Attestation: I reviewed the patient's medical records. Lab Data Attestation: I reviewed the patient's lab results. Result diagrams: 04/08/20 13:53 04/08/20 13:53 Labs: Lab Results 04/08/20 04/08/20 04/08/20 Range/Units 13:52 13:53 13:53 WBC 11.4 H (4.5-10.0) K/mm3 RBC 5.12 (4.2-5.4) M/mm3 Hgb 11.9 L D (12.0-15.0) g/dL Hct 39.1 (37.0-47.0) % MCV 76.4 L (80-100) fl MCH 23.2 L (26-34)
[2020-04-08] MEDS: NITROFURANTOIN MONOHYD MACROCR 100 MG CAP PO (16:38)
[2020-04-08] MEDS: KETOROLAC 30 MG/ML VIAL (*BKC) IV PUSH (16:38)
== END 2020-04-08 17:13 | disposition home or self-care (01) ==
PROVIDERS: Emergency Provider Emergency Medicine
DX: N39.0 Urinary tract infection, site not specified (principal); Z87.891 Personal history of nicotine dependence
CPT/HCPCS: 36415; 80053; 81001; 81025; 83690; 85025; 85055; 87077; 87086; 87088; 87186; 96374; 99284; A9270; J1885

== ENCOUNTER 2020-04-15 09:39 | Outpatient (CLI) | payer SELFPAY ==
--- NOTE | ~2020-04-15 | MR_ITS ---
EXAMINATION: MR pelvis wo/w con INDICATION: Uterine mass TECHNIQUE: Coronal SSFSE ARC, Coronal, Axial, and Sagittal T2 FRFSE small [id number], Coronal 2D F IESTA FatSat, Axial SSFSE BH ARC, Axial 3D DualEcho BH, Axial STIR, Axial DWI b=500, pre and dynamic postcontrast Axial LAVA ARC COMPARISON: None available CONTRAST: Multihance, 15 cc FINDINGS: There is an approximately 9.1 x 10.0 x 11.1 cm heterogeneous mass in the endometrial canal which distends the uterus. The uterine myometrium is normal in thickness without focal mass identifie d. There appears to be a small amount of fluid in the endometrial canal surrounding the mass. The ova sammie appear normal. No pathologically enlarged pelvic lymph nodes are identified. There are no dilate d loops of bowel. The visualized osseous structures are unremarkable. IMPRESSION: 1. Heterogeneous mass of the endometrial canal causing distention of the endometrial canal and uterin e enlargement which may has MR features suggestive of a fibroid however polyp or other neoplasm are c onsiderations. Reviewed, dictated and finalized at location A. IMPRESSION: 1. Heterogeneous mass of the endometrial canal causing distention of the endome trial canal and uterine enlargement which may has MR features suggestive of a f ibroid however polyp or other neoplasm are considerations.
== END 2020-04-15 09:40 | disposition home or self-care (01) ==
PROVIDERS: Visit Provider Obstetrics & Gynecology
DX: N85.9 Noninflammatory disorder of uterus, unspecified (principal)
CPT/HCPCS: 72197; A9577

== ENCOUNTER 2020-05-03 15:09 | Inpatient (IN) | payer MEDICAID, SELFPAY ==
[2020-05-03] VITALS (16 sets, daily range): BP systolic 92–146; BP diastolic 46–94; PULSE 67–89; RESP 14–23; TEMP 36.2–36.8; O2SAT 99–100; BMI 29.4
--- NOTE | 2020-05-03 15:20 | ECG_ITS ---
Measurements Intervals [place] Rate: 75 P: 57 ID: [id number] QRS: 47 QRSD: 86 T: 38 QT: 363 QTc: 406 Interpretive Statements SINUS RHYTHM BASELINE ARTIFACT- I, II, AVR, AVL NORMAL ECG Electronically Signed On 05-03-2020 15:39:36 CDT by Jean Pierre Figueroa D.O.
[2020-05-03 15:32] LABS: Basophils Absolute Auto 0.1 K/mm3 (0.0-0.1); Basophils Percent Auto 0.8 % (0.2-1.2); Eosinophils Absolute Auto 0.1 K/mm3 (0-0.3); Eosinophils Percent Auto 1.3 % (0-4.4); Hematocrit 21.6 % (37.0-47.0); Immature Granulocyte Absolute 0.02 K/mm3 (0.00-0.031); Immature Granulocyte Percent A 0.3 % (0-0.5); Lymphocytes Absolute Auto 1.67 K/mm3 (0.9-3.2); Lymphocytes Percent Auto 23.5 % (18.3-44.2); Mean Corpuscular HGB Conc 28.2 g/dl (32-36); Mean Platelet Volume 10.2 fl (7.4-10.4); Monocytes Absolute Auto 0.4 K/mm3 (0.1-0.6); Monocytes Percent Auto 5.8 % (2.6-8.5); Neutrophils Absolute Auto 4.9 K/mm3 (1.3-6.7); Neutrophils Percent Auto 68.3 % (45.5-73.1); Platelet Count Result 384 k/mm3 (150-375); Red Blood Count 2.54 M/mm3 (4.2-5.4); Red Cell Distribution Width 21.1 % (11.5-14.5); White Blood Count 7.1 K/mm3 (4.5-10.0)
--- NOTE | 2020-05-03 15:33 | ED.DIZZY ---
HPI - Dizziness General Chief Complaint: Dizziness Stated Complaint: lost so much blood from my period Time Seen by Provider: 05/03/20 15:23 Source: patient and family Mode of arrival: ambulatory Limitations: no limitations History of Present Illness HPI Narrative: Patient is a 34-year-old female who presents for evaluation of increased vaginal bleeding. Patient reports she has been dizzy and felt lightheaded with standing. Patient reports she has a history of heavy periods, has required transfusion and admission in the past, is currently taking control, iron tablets, and felt that her bleeding had actually improved until this afternoon. Patient does report mild pelvic pain and cramping. She denies back pain. Patient reports she has had very heavy bleeding over the past 3 hours, soaking through numerous heavy tampons and pads. As patient began to feel lightheaded and dizzy with standing, her OB office referred her to our emergency department. Patient follows with Dr. Lester, has been diagnosed with large fibroid/uterine mass and is scheduled for laparotomy, myomectomy in early May. Related Data Home Medications Medication Instructions Recorded Confirmed drospirenone (contraceptive) 05/03/20 [Slynd] Allergies Allergy/AdvReac Type Severity Reaction Status Date / Time No Known Allergies Allergy Verified 04/19/20 14:37 Review of Systems Review of Systems: Narrative: CONSTITUTIONAL: Denies fever CARDIOVASCULAR: Denies chest pain RESPIRATORY: Denies cough or dyspnea. GASTROINTESTINAL: Denies abdominal pain, reports pelvic pain and cramping SKIN: Denies rash MUSCULOSKELETAL: Denies back pain NEUROLOGIC: Denies headache PMFSH Past Medical History Medical History Dysfunctional uterine bleeding Severe anemia Surgical History Surgical History [place] teeth removed Social History Social History Smoking status: Former smoker Tobacco type: cigarettes Alcohol intake: current Drinks per week: 1 Substance use: current Substance use type: marijuana Spiritual care concerns: No Exam Narrative: Exam Narrative: GENERAL: Awake, alert, conversant HEAD: Normocephalic, atraumatic. EYES: PERRLA and EOMI. ENT: Nares clear, no rhinorrhea or epistaxis. Mucous membranes moist. NECK: Supple. CHEST: No respiratory distress, breathing even and non labored HEART: Regular rate, sinus rhythm ABDOMEN:Non distended, mildly tender in suprapubic region : Pelvic exam notable for blood clots present in the vagina, there is bleeding present, approximately 50 mL present in the vagina, mild tenderness on exam, no cervical erythema or cervical motion tenderness EXTREMITIES: Normal range of motion. No edema. SKIN: Warm, dry, no rash. NEURO:No focal deficits. Alert and oriented x3 Course Vital Signs Vital signs: Vital Signs Temperature 36.6 C 05/03/20 15:16 Pulse Rate 81 05/03/20 15:16 Respiratory Rate 23 H 05/03/20 15:16 Blood Pressure 146/94 H 05/03/20 15:16 Pulse Oximetry 100 05/03/20 15:16 Temperature 36.6 C 05/03/20 15:16 Pulse Rate 79 05/03/20 16:32 Respiratory Rate 15 05/03/20 16:32 Blood Pressure 114/64 05/03/20 16:32 Pulse Oximetry 100 05/03/20 16:32 MDM - Dizziness MDM Narrative Medical decision making narrative: Patient is a 34-year-old with a history of known dysfunctional uterine bleeding, scheduled for myomectomy, laparotomy with Dr. Lester for early May who presents for continued vaginal bleeding despite optimal outpatient treatment. Patient with brisk vaginal bleeding on exam, is not hemodynamically unstable, blood pressure is normal, no severe tachycardia. IV access obtained and labs are drawn including type and screen. Patient with hemoglobin 6.1 given she is symptomatic we will go
[2020-05-03 15:43] LABS: Anion Gap 7 mmol/L (8-16); Blood Urea Nitrogen 9 mg/dL (7-17); Calcium 8.4 mg/dL (8.4-10.2); Carbon Dioxide 21 mmol/L (22-30); Chloride 106 mmol/L (98-107); Estimated CRCL calculation 116 ml/min; Estimated Glomerular Filt Rate > 60; Glucose 110 mg/dL (65-105); Potassium 3.4 mmol/L (3.4-5.0); Sodium 134 mmol/L (137-145)
[2020-05-03 15:44] LABS: Hemoglobin 6.1 g/dL (12.0-15.0)
[2020-05-03 15:45] LABS: Hypochromasia 2+ (NORMAL); Ovalocytes 1+ (NORMAL); Platelet Estimate Increased (Adequate)
[2020-05-03] MEDS: TRANEXAMIC ACID 1,000 MG/10 ML AMPUL 1000 MG IV PUSH (16:14)
[2020-05-03 17:11] LABS: INR 1.7; Prothrombin Time 19.1 Seconds (11.1-14.7)
--- NOTE | 2020-05-03 18:26 | ADMGEN ---
This patient, Aleyda Baer, was admitted to IMU Room 206-02. Patient/family oriented to hospital policies and general routines including ID bracelet, bed and alarms, visiting hours, pain management, procedures, bathroom and other care routines, personal items, smoking policy, room service/diet, and visiting hours. Valuables list has been completed. Information on how to activate the Rapid Response Team has been discussed. Patient/Family are encouraged to report perceived risks to care and to ask questions if they do not understand what they are told or what they should do.
[2020-05-03] MEDS: TUBING, BLOOD PLUM PUMP TUBING 1 EACH XX (18:52)
[2020-05-03] MEDS: SODIUM CHLORIDE 0.9% IV 250 ML 30 ML IV CONT (18:53)
--- NOTE | 2020-05-03 19:39 | PM.IMHP ---
H&P: HPI History of Present Illness Date/Time: 05/03/20 19:39 Chief complaint: vaginal bleeding/symptomatic anemia Narrative: Aleyda Baer is a 34 year old female , nullgravida , who sees Dr Owens for known Fibroid uterus and is been scheduled for For laparotomy with myomectomy on May 26 2020.is admitted for observation and BT as her HB was 6.1 and was symptomatic . Patient was last seen by Dr. Owens on 19 of April. The patient had her last menstrual period on April 15 and started SLYND on April 16. The patient has been bleeding since than and the amount of bleeding was acceptable but stopped bleeding on 04/29 and 04/30 and started bleeding again on 05/01 , but this afternoon she started bleeding more heavy with passage of clots and which brought her to the ER. c/o Pelvic pain.Sometimes has noticed difficulty with BM.Recently treated for UTI. Review of Systems Constitutional: Constitutional: Reports fatigue ENT: Reports Normal hearing present Cardiovascular: Cardiovascular: Reports no additional cardiovascular complaints, Denies chest pain and Denies lightheadedness Respiratory: Respiratory: Reports no additional respiratory complaints, Denies dyspnea and Denies dyspnea on exertion Gastrointestinal: Gastrointestinal: Reports as per HPI and Reports no additional gastrointestinal complaints Genitourinary: Genitourinary: Reports as per HPI [facility] Past Medical History Medical History (Updated 05/03/20 @ 19:51 by Shira Avelar MD) Dysfunctional uterine bleeding Leiomyoma of uterus Severe anemia Surgical History Surgical History [place] teeth removed Social History Social History Smoking status: Never smoker Tobacco type: cigarettes Second hand tobacco smoke exposure: No Alcohol intake: current Drinks per week: 1 Substance use: current Substance use type: marijuana Last use: 05/02/2020 Spiritual care concerns: No Meds Home Medications and Allergies Home Medications Medication Instructions Recorded Confirmed Type iron,carbon,[id number] 1 tablet PO ONCE #30 tablet 03/19/20 05/03/20 Rx [Ferralet 90 Dual-Iron Delivery] drospirenone (contraceptive) 4 mg PO DAILY 05/03/20 05/03/20 History [Slynd] Allergies Allergy/AdvReac Type Severity Reaction Status Date / Time No Known Allergies Allergy Verified 04/19/20 14:37 Vital Signs Vital Signs - 24 hr 05/03/20 15:16 05/03/20 15:49 05/03/20 16:32 Temperature 36.6 C Pulse Rate 81 82 79 Respiratory Rate 23 H 14 15 Blood Pressure 146/94 H 130/74 114/64 Pulse Oximetry 100 99 100 05/03/20 17:04 05/03/20 18:31 05/03/20 18:56 Temperature 36.8 C 36.6 C Pulse Rate 88 84 84 Respiratory Rate 19 18 18 Blood Pressure 121/57 L 121/63 118/60 Pulse Oximetry 100 100 100 Exam Const: General: comfortable and no acute distress Resp: Auscultation: clear to auscultation bilaterally Cardio: Rate: regular rate Rhythm: regular rhythm GI: GI Palp: Yes Soft to palpation : External Female Exam: normal external appearance Speculum Exam - Vagina: vaginal bleeding (minimal in vault. no active bleeding noted) Speculum Exam - Cervix: normal appearance of the cervix and Cervical os closed Bimanual exam- vagina & uterus: normal palpation, uterine size normal (12-14 weeks), normal palpation, boggy, no cervical motion tenderness and enlarged Bimanual Exam- Adnexa, other: normal adnexae Other: Uterus 12-14 weeks size, H&P: Results Labs Labs: Short CBC 05/03/20 Range/Units 15:23 WBC 7.1 (4.5-10.0) K/mm3 Hgb 6.1 L* D (12.0-15.0) g/dL Hct 21.6 L (37.0-47.0) % Plt Count 384 H (150-375) k/mm3 BMP 05/03/20 15:23 Sodium 134 L Potassium 3.4 Chloride 106 Carbon Dioxide 21 L BUN 9 D Creatinine 0.60 L Glucose 110 H Calcium 8.4 Assessment and Plan Assessme
[2020-05-04] VITALS (8 sets, daily range): BP systolic 99–108; BP diastolic 40–63; PULSE 64–81; RESP 16–20; TEMP 36.5–37.1; O2SAT 95–100
[2020-05-04] MEDS: TRANEXAMIC ACID 1,000MG/ISO100 1,000 MG/100 ML BAG 200 MG IVPB (03:53)
[2020-05-04 05:42] LABS: Basophils Percent Auto 0.7 % (0.2-1.2); Eosinophils Absolute Auto 0.1 K/mm3 (0-0.3); Eosinophils Percent Auto 1.5 % (0-4.4); Hematocrit 26.1 % (37.0-47.0); Hemoglobin 8.2 g/dL (12.0-15.0); Immature Granulocyte Absolute 0.02 K/mm3 (0.00-0.031); Immature Granulocyte Percent A 0.3 % (0-0.5); Lymphocytes Absolute Auto 1.16 K/mm3 (0.9-3.2); Lymphocytes Percent Auto 19.8 % (18.3-44.2); Mean Corpuscular HGB Conc 31.4 g/dl (32-36); Mean Corpuscular Hemoglobin 26.7 pg (26-34); Mean Platelet Volume 9.7 fl (7.4-10.4); Monocytes Absolute Auto 0.4 K/mm3 (0.1-0.6); Monocytes Percent Auto 6.1 % (2.6-8.5); Neutrophils Absolute Auto 4.2 K/mm3 (1.3-6.7); Neutrophils Percent Auto 71.6 % (45.5-73.1); Platelet Count Result 284 k/mm3 (150-375); Red Blood Count 3.07 M/mm3 (4.2-5.4); White Blood Count 5.9 K/mm3 (4.5-10.0)
[2020-05-04 05:59] LABS: Anion Gap 4 mmol/L (8-16); Blood Urea Nitrogen 6 mg/dL (7-17); Calcium 8.1 mg/dL (8.4-10.2); Carbon Dioxide 24 mmol/L (22-30); Chloride 108 mmol/L (98-107); Estimated CRCL calculation 136 ml/min; Estimated Glomerular Filt Rate > 60; Glucose 101 mg/dL (65-105); Potassium 3.9 mmol/L (3.4-5.0); Sodium 136 mmol/L (137-145)
--- NOTE | 2020-05-04 09:20 | PM.GYNPNOP ---
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 pt to f/u in [address] Sorto (2) Severe anemia: Code(s): D64.9 - Anemia, unspecified Status: Acute Assessment and Plan: s/p 2 units PRBCS and Hb is 8.2. Pt symptomatically feeling much better (3) Dysfunctional uterine bleeding: Code(s): N93.8 - Other specified abnormal uterine and vaginal bleeding Status: Acute Assessment and Plan: will start her on lysteda x 5 days Bleeding precautions reviewed. 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 vaginal bleeding has tremendously decreased. only used 1 pad overnight and was not fully soaked. Tolerating regular diet Subjective: patient reports feeling better Review of Systems Constitutional: Constitutional: Reports no additional constitutional complaints Cardiovascular: Cardiovascular: Reports no additional cardiovascular complaints Respiratory: Respiratory: Reports no additional respiratory complaints Gastrointestinal: Gastrointestinal: Reports no additional gastrointestinal complaints Genitourinary: Genitourinary: Reports no additional female genitourinary complaints Exam Const: General: comfortable, no acute distress, alert and awake Resp: Auscultation: clear to auscultation bilaterally Cardio: Rate: regular rate Rhythm: regular rhythm GI: Auscultation: normal bowel sounds 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 - PN: Obj Data Vital Signs Vital Signs: Vital Signs - 24 hr 05/03/20 15:16 05/03/20 15:49 05/03/20 16:32 Temperature 36.6 C Pulse Rate 81 82 79 Respiratory Rate 23 H 14 15 Blood Pressure 146/94 H 130/74 114/64 Pulse Oximetry 100 99 100 05/03/20 17:04 05/03/20 18:31 05/03/20 18:56 Temperature 36.8 C 36.6 C Pulse Rate 88 84 84 Respiratory Rate 19 18 18 Blood Pressure 121/57 L 121/63 118/60 Pulse Oximetry 100 100 100 05/03/20 18:57 05/03/20 19:57 05/03/20 20:00 Temperature 36.4 C 36.4 C Pulse Rate 86 86 82 Respiratory Rate 18 18 18 Blood Pressure 116/50 L 116/50 L Pulse Oximetry 100 100 99 05/03/20 20:57 05/03/20 21:55 05/03/20 22:00 Temperature 36.4 C 36.6 C Pulse Rate 76 81 74 Respiratory Rate 18 18 Blood Pressure 104/56 L 104/47 L Pulse Oximetry 99 99 05/03/20 22:10 05/03/20 22:26 05/03/20 23:26 Temperature 36.3 C L 36.2 C L 36.5 C Pulse Rate 78 73 67 Respiratory Rate 20 18 20 Blood Pressure 92/48 L 96/47 L 102/46 L Pulse Oximetry 100 100 100 05/03/20 23:43 05/04/20 00:00 05/04/20 00:26 Temperature 36.6 C Pulse Rate 67 71 77 Respiratory Rate 18 18 Blood Pressure 101/43 L Pulse Oximetry 97 97 05/04/20 01:24 05/04/20 02:00 05/04/20 04:00 Temperature 36.6 C 36.5 C Pulse Rate 78 64 73 Respiratory Rate 20 20 Blood Pressure 99/40 L 102/63 Pulse Oximetry 97 95 05/04/20 06:00 05/04/20 08:29 Temperature 37.1 C Pulse Rate 65 77 Respiratory Rate 16 Blood Pressure 108/59 L Pulse Oximetry 100 Intake/Output Intake/Output: Intake & Output 05/01/20 05/02/20 05/03/20 05/04/20 23:59 23:59 23:59 23:59 Intake Total 350 350 Output Total 250 Balance 350 100 Meds/Results Medications: Active Medications Generic Name Dose Route Start Last Admin Trade Name Freq PRN Reason Stop Dose Admin Acetaminophen 650 mg 05/03/20 16:03 Tylenol Tablet PO Q4H PRN Mild Pain (1-3) or Fever Acetaminophen/Codeine Phosphate 1 tab 05/03/20 19:40 05/03/20 20:25 Tylenol #3 PO 1 tab Q6H PRN Administration PAIN 7-10 Tranexamic Acid/Sodium Chloride 1,000 mg in 100 mls @ 200 mls/hr 0
[2020-05-04 10:33] LABS: Hematocrit 26.6 % (37.0-47.0); Hemoglobin 8.3 g/dL (12.0-15.0)
== END 2020-05-04 11:30 | disposition home or self-care (01) | DRG 532 ==
LOC: ANHED 16:05 → ANHIMU 16:30
PROVIDERS: Admitting Provider Obstetrics & Gynecology; Emergency Provider Emergency Medicine; Visit Provider Obstetrics & Gynecology
DX: N93.8 Other specified abnormal uterine and vaginal bleeding (principal); D25.9 Leiomyoma of uterus, unspecified; D64.9 Anemia, unspecified; Z87.891 Personal history of nicotine dependence
CPT/HCPCS: 36415; 36430; 80048; 85014; 85018; 85025; 85610; 85730; 86644; 86850; 86900; 86901; 86923; 93005; 96374; 99285; A9270; G0378; G0379; J7050; P9016

== ENCOUNTER 2020-07-06 14:10 | Observation (INO) | payer SELFPAY ==
[2020-07-06] VITALS (9 sets, daily range): BP systolic 109–125; BP diastolic 51–85; PULSE 71–113; RESP 15–25; TEMP 36.5–37.3; O2SAT 99–100; BMI 30.2
[2020-07-06 14:31] LABS: Basophils Absolute Auto 0.1 K/mm3 (0.0-0.1); Basophils Percent Auto 0.8 % (0.2-1.2); Eosinophils Absolute Auto 0.1 K/mm3 (0-0.3); Eosinophils Percent Auto 1.1 % (0-4.4); Hemoglobin 7.7 g/dL (12.0-15.0); Immature Granulocyte Absolute 0.02 K/mm3 (0.00-0.031); Immature Granulocyte Percent A 0.3 % (0-0.5); Lymphocytes Absolute Auto 1.61 K/mm3 (0.9-3.2); Lymphocytes Percent Auto 25.1 % (18.3-44.2); Mean Corpuscular HGB Conc 27.5 g/dl (32-36); Mean Corpuscular Hemoglobin 19.6 pg (26-34); Mean Corpuscular Volume 71.2 fl (80-100); Mean Platelet Volume 10.1 fl (7.4-10.4); Monocytes Absolute Auto 0.3 K/mm3 (0.1-0.6); Neutrophils Absolute Auto 4.3 K/mm3 (1.3-6.7); Neutrophils Percent Auto 67.7 % (45.5-73.1); Platelet Count Result 381 k/mm3 (150-375); Red Blood Count 3.93 M/mm3 (4.2-5.4); Red Cell Distribution Width 21.8 % (11.5-14.5); White Blood Count 6.4 K/mm3 (4.5-10.0)
[2020-07-06 14:40] LABS: Alanine Aminotransferase 30 U/L (4-35); Albumin Level 4.3 g/dL (3.5-5.1); Alkaline Phosphatase 69 U/L (38-126); Anion Gap 11 mmol/L (8-16); Aspartate Amino Transferase 21 U/L (14-36); Bilirubin,Total 0.4 mg/dL (0.2-1.3); Blood Urea Nitrogen 9 mg/dL (7-17); Calcium 9.1 mg/dL (8.4-10.2); Carbon Dioxide 24 mmol/L (22-30); Chloride 103 mmol/L (98-107); Estimated CRCL calculation 104 ml/min; Estimated Glomerular Filt Rate > 60; Glucose 122 mg/dL (65-105); Potassium 3.7 mmol/L (3.4-5.0); Sodium 138 mmol/L (137-145)
--- NOTE | 2020-07-06 16:20 | ED.GENADULT ---
HPI - General Adult General Chief complaint: Vaginal Bleeding Stated complaint: vaginal bleeding x29 days Time Seen by Provider: 07/06/20 15:57 Source: patient History of Present Illness HPI narrative: Patient is a 34 y/o female complaining heavy vaginal bleeding for 29 y/o days. She states that her bleeding is mostly bright red blood with clots. There is no known alleviating or exacerbating factor. She has known fibroid and she had blood transfusion in the past for severe anemia. She denies any pelvic pain. She has some dizziness and SOB. Related Data Home Medications Medication Instructions Recorded Confirmed ferrous sulfate 325 mg PO DAILY 07/06/20 07/06/20 Allergies Allergy/AdvReac Type Severity Reaction Status Date / Time No Known Allergies Allergy Verified 04/19/20 14:37 Review of Systems Constitutional: Constitutional: Denies chills, Denies fever(s), Denies headache(s) and Denies weakness Eyes: Eyes: Denies blurry vision ENT: Denies headache(s) and Denies neck pain Cardiovascular: Cardiovascular: Denies chest pain and Reports dyspnea Respiratory: Respiratory: Denies cough and Reports dyspnea Gastrointestinal: Gastrointestinal: Denies abdominal pain, Denies diarrhea, Denies nausea and Denies vomiting Genitourinary: Genitourinary: Reports abnormal vaginal bleeding, Denies hematuria and Denies dysuria Musculoskeletal: Musculoskeletal: Denies back pain and Denies neck pain Neurologic: Denies headache(s) and Denies weakness PMFSH Past Medical History Medical History Dysfunctional uterine bleeding Leiomyoma of uterus Severe anemia Surgical History Surgical History [place] teeth removed Family History Family History Mother Breast cancer Hypertension Social History Social History Smoking status: Never smoker Tobacco type: cigarettes Second hand tobacco smoke exposure: No Alcohol intake: never Drinks per week: 1 Substance use: current Substance use type: marijuana Last use: 05/02/2020 Gender identity (if verbalized by the patient): Female Spiritual care concerns: No Exam Const: General: no acute distress and well developed Orientation/consciousness: oriented to person, oriented to place, oriented to time and patient oriented x3 HENMT: Head: normocephalic Ears: external ears normal General nose exam: Normal external nose present Eyes: General: appearance normal, both eyes and all related structures Conjunctivae: conjunctivae normal Neck: Neck: normal visual inspection and full ROM Chest: Chest palpation & inspection: normal inspection of the chest and no tenderness Resp: Effort & Inspection: normal respiratory effort Auscultation: clear to auscultation bilaterally Cardio: Rate: regular rate Rhythm: regular rhythm GI: GI Palp: No abdominal tenderness and Yes Soft to palpation : External Female Exam: normal external appearance Speculum Exam - Vagina: normal appearance of the vagina and vaginal bleeding (some blood in vaginal canal, not actively bleeding) Skin: General skin exam: normal color and turgor normal Neuro: General: oriented to person, oriented to place, oriented to time and patient oriented x3 Cognition (Neuro): normal cognition Extrem: General: normal to inspection, full ROM and no pedal edema Psych: Appearance: grossly normal Mental Status: mental status grossly normal Affect: normal affect Course Consultations Consultation #1: Discussed with Dr. Owens, who recommends blood transfusion, admit and keep patient NPO after midnight for possible surgery tomorrow. Date: 07/06/20 Time: 17:36 Vital Signs Vital signs: Vital Signs Temperature 36.5 C 07/06/20 14:14 Pulse Rate 113 H 07/06/20 14:14 Respiratory Rate 20
--- NOTE | 2020-07-06 16:20 | PC.NURSE ---
PER VICTOR M KHAN, H&H TO BE DRAWN AFTER LITER OF NS HAS INFUSED.
[2020-07-06] MEDS: SODIUM CHLORIDE 0.9% IV 1,000 ML 999 ML IV CONT (16:33)
[2020-07-06 17:12] LABS: Hematocrit 26.3 % (37.0-47.0); Hemoglobin 7.4 g/dL (12.0-15.0)
--- NOTE | 2020-07-06 17:22 | PC.NURSE ---
DISCUSSED PT H&H WITH VICTOR M KHAN. RECCOMENDED THAT SINCE PT IS NOT BELOW 7 ON HER HEMAGLOBIN THAT HE DISCUSS SCHEDULING AN OUTPATIENT TRANSFUSION WITH THE GYNOCOLOGIST WHEN HE CALLS THEM FOR CONSULT. VICTOR M KHAN AGREES ON THE PLAN OF CARE, PT UPDATED.
--- NOTE | 2020-07-06 17:34 | PC.NURSE ---
ERP ERIN AT BEDSIDE FOR UPDATE.
--- NOTE | 2020-07-06 19:15 | PC.NURSE ---
BEDSIDE REPORT TO [place] HARRINGTON AT THIS TIME, SHE HAS ASSUMED PT CARE.
[2020-07-06] MEDS: SODIUM CHLORIDE 0.9% IV 250 ML 30 ML IV CONT (20:34)
[2020-07-06] MEDS: TUBING, BLOOD PLUM PUMP TUBING 1 EACH XX (20:34)
--- NOTE | 2020-07-06 20:55 | ADMGEN ---
This patient, Aleyda Baer, was admitted to Medical Room 349-01. Patient/family oriented to hospital policies and general routines including ID bracelet, bed and alarms, visiting hours, pain management, procedures, bathroom and other care routines, personal items, smoking policy, room service/diet, and visiting hours. Valuables list has been completed. Information on how to activate the Rapid Response Team has been discussed. Patient/Family are encouraged to report perceived risks to care and to ask questions if they do not understand what they are told or what they should do.
[2020-07-07 04:00] VITALS: BP 117/58; PULSE 68; RESP 16; TEMP 36.4; O2SAT 100
[2020-07-07 06:30] LABS: Eosinophils Absolute Auto 0.1 K/mm3 (0-0.3); Eosinophils Percent Auto 2.2 % (0-4.4); Hematocrit 28.3 % (37.0-47.0); Hemoglobin 8.2 g/dL (12.0-15.0); Immature Granulocyte Absolute 0.02 K/mm3 (0.00-0.031); Immature Granulocyte Percent A 0.5 % (0-0.5); Immature Platelet Fraction Pct 3.3 % (0.9-11.2); Lymphocytes Absolute Auto 1.44 K/mm3 (0.9-3.2); Lymphocytes Percent Auto 35.5 % (18.3-44.2); Mean Corpuscular Volume 72.6 fl (80-100); Mean Platelet Volume 11.3 fl (7.4-10.4); Monocytes Absolute Auto 0.3 K/mm3 (0.1-0.6); Monocytes Percent Auto 6.9 % (2.6-8.5); Neutrophils Absolute Auto 2.2 K/mm3 (1.3-6.7); Neutrophils Percent Auto 53.9 % (45.5-73.1); Platelet Count Result 276 k/mm3 (150-375); White Blood Count 4.1 K/mm3 (4.5-10.0)
--- NOTE | 2020-07-07 06:57 | PM.IMHP ---
H&P: HPI History of Present Illness Date/Time: 07/07/20 06:57 Chief complaint: severe anemia Narrative: Aleyda Baer is a 34 year old female with known large fibroid uterus. She presented to ED with complaints of lightheadedness and SOB. She had seen a new provider due to insurance issues a few days ago and she gave her a prescription for prometrium or Provera. The patient states starting yesterday she felt like she was very anemic and needed a blood transfusion she was shaky and dizzy with standing. She has been having menometrorrhagia for one month.She states the new provider is planning on myomectomy. She has been tried on several control pills. She has been on iron supplement also. Has had normal endometrial biopsy and pap smear. She has recently seen an outside provider. Hemoglobin was 7.2 in ED. Pelvic exam by ED physician he reported as not significant for active heavy bleeding on exam. Her hemoglobin was 8.2 after one unit. States her bleeding has decreased. She states she felt much better after the one unit. No lightheadedness with walking to restroom. She is supposed to call the provider this week and they will discuss her surgery. Review of Systems Review of Systems: All systems reviewed & are unremarkable except as noted in HPI and below Constitutional: Constitutional: Reports no additional constitutional complaints Eyes: Eyes: Reports no additional eye complaints Cardiovascular: Cardiovascular: Denies chest pain Respiratory: Respiratory: Reports other Gastrointestinal: Gastrointestinal: Denies abdominal pain Genitourinary: Genitourinary: Reports no additional female genitourinary complaints, Reports as per HPI, Denies dyspareunia, Denies vaginal discharge, Denies vaginal dryness, Denies vaginal odor and Denies vaginal pruritus Psychiatric: Psychiatric: Reports no additional psychiatric complaints Hematologic/Lymphatic: Hematologic/Lymphatic: Reports no additional hematologic/lymphatic complaints PMFSH Past Medical History Medical History Dysfunctional uterine bleeding Leiomyoma of uterus Severe anemia Surgical History Surgical History [place] teeth removed Family History Family History Mother Breast cancer Hypertension Social History Social History Smoking status: Never smoker Tobacco type: cigarettes Second hand tobacco smoke exposure: No Alcohol intake: never Drinks per week: 1 Substance use: current Substance use type: marijuana Last use: 05/02/2020 Gender identity (if verbalized by the patient): Female Spiritual care concerns: No Meds Home Medications and Allergies Home Medications Medication Instructions Recorded Confirmed Type drospirenone (contraceptive) 4 mg 4 mg PO DAILY #28 tablet 06/24/20 07/06/20 Rx (28) tablet ferrous sulfate [Fe-Tabs] 325 mg PO DAILY 07/06/20 07/06/20 History Allergies Allergy/AdvReac Type Severity Reaction Status Date / Time No Known Allergies Allergy Verified 04/19/20 14:37 Vital Signs Vital Signs - 24 hr 07/06/20 14:14 07/06/20 16:19 07/06/20 16:30 Temperature 97.7 F Pulse Rate 113 H 90 84 Respiratory Rate 20 15 25 H Blood Pressure 125/85 Pulse Oximetry 99 100 99 07/06/20 16:31 07/06/20 20:09 07/06/20 20:29 Temperature 98.7 F 98.8 F Pulse Rate 90 85 89 Respiratory Rate 15 18 19 Blood Pressure 123/76 109/51 L 125/75 Pulse Oximetry 100 100 100 07/06/20 21:29 07/06/20 22:29 07/06/20 23:15 Temperature 98.0 F 99.0 F 99.1 F Pulse Rate 75 72 71 Respiratory Rate 16 16 16 Blood Pressure 123/53 L 123/58 L 118/53 L Pulse Oximetry 100 100 100 07/07/20 04:00 Temperature 97.5 F L Pulse Rate 68 Respiratory Rate 16 Blood Pressure 117/58 L Pulse Oximetry 100 Exam Const:
[2020-07-07 08:00] VITALS: BP 136/79; PULSE 92; RESP 18; TEMP 36.6; O2SAT 100
[2020-07-07 09:41] VITALS: PULSE 64; RESP 16; O2SAT 100
[2020-07-07 12:00] VITALS: BP 138/70; PULSE 93; RESP 18; TEMP 36.8; O2SAT 100
[2020-07-07 14:43] VITALS: BP 129/75; PULSE 106; RESP 18; TEMP 36.6; O2SAT 100
== END 2020-07-07 14:15 | disposition home or self-care (01) ==
LOC: ANHED 17:45 → ANH3MED 19:45
PROVIDERS: Emergency Medicine; Admitting Provider Obstetrics & Gynecology; Emergency Provider Emergency Medicine; Visit Provider Obstetrics & Gynecology
DX: D25.9 Leiomyoma of uterus, unspecified (principal); D64.9 Anemia, unspecified; N93.9 Abnormal uterine and vaginal bleeding, unspecified; R42 Dizziness and giddiness; R06.02 Shortness of breath
CPT/HCPCS: 36415; 36430; 80053; 85014; 85018; 85025; 85055; 86850; 86900; 86901; 86923; 96360; 99285; G0378; G0379; J7030; J7050; P9016